=== PATIENT | male | born 1965 | race Caucasian/White ===

== ENCOUNTER 2018-07-13 17:03 | Observation (INO) ==
--- NOTE | 2018-07-13 17:57 | Emergency Department Note ---
Disposition Clinical Impression: Acute hepatitis Hepatitis A Qualifiers: Hepatic coma status: without hepatic coma Qualified Code(s): B15.9 - Hepatitis A without hepatic coma Disposition: Admitted As Inpatient Condition: Good General Adult HPI - General Chief complaint: ED Abdominal Pain Stated complaint: FLu like symptoms Time Seen by Provider: 07/13/18 17:41 Source: patient Mode of arrival: ambulatory Limitations: no limitations Nursing Notes Reviewed: Yes Vital Signs Reviewed: Yes - History of Present Illness HPI Narrative: Patient presents today with no significant past medical history for evaluation of headache and body aches decreased appetite and intermittent abdominal and chest pain. He states his abdominal pain as a cramping chest pain and is not worse with anything in particular describes it as a intermittent and moving in nature. The patient's chest pain as long the right side of his chest he states it feels like a muscle spasm and is worse with muscle movements. His headache is a globalized headache that is worsening of frontal sinus area. He has been sick for approximately 1 week with symptoms getting worse over the past 2 days. He notes Tea colored urine. Decreased overall urine. No burning with urination. Generalized body aches worsen the large muscles including the legs in the upper arms. No decreased ability to walk and no change in mental status. Pain Scale: 8 - Related Data Allergies Allergy/AdvReac Type Severity Reaction Status Date / Time Penicillins Allergy Mild Anaphylaxis Verified 07/13/18 17:28 Review of Systems: CONSTITUTIONAL: No weight loss, fever, chills, weakness or fatigue. HEENT: Eyes: No visual changes. Ears, Nose, Throat: No hearing loss, difficulty talking or unable to swallow. SKIN: No rash or itching. CARDIOVASCULAR: Chest pain without chest pressure or chest discomfort. No palpitations or edema. RESPIRATORY: No shortness of breath, cough or sputum. GASTROINTESTINAL: Intermittent abdominal pain with nausea but no vomiting. Decreased overall bowel movements. GENITOURINARY: Decreased urination with dark urine NEUROLOGICAL: Frontal headache with no dizziness, syncope, paralysis, ataxia, numbness or tingling in the extremities. No change in bowel or bladder control. MUSCULOSKELETAL: Generalized body aches Physical Exam General: Well appearing, nontoxic, no acute distress Head: Normocephalic Atraumatic Eyes: PERRL, EOMI ENT: Airway patent, no stridor Neck: supple, no meningismus Chest: Lungs clear to auscultation bilateral Cardiac: Regular rate and rhythm, no murmurs, rubs or gallops Abdomen: soft, nontender, nondistended; no guarding, rebound, or tenderness to percussion Musculoskeletal: Calves symmetric, nontender, no palpable cord Skin: No rash, normal skin tone Neuro: Alert and Oriented to person, place, and time; No focal deficit Course - Reevaluation(s) Reevaluation #1: Patient's labs concerning for acute hepatitis. Hepatitis panel as well as INR and Tylenol have been ordered. CT scan and ultrasound of both been ordered. Reevaluation #2: CT scan concerning for acute cholecystitis. Gallbladder with Lawson sign negative and right upper quadrant showing small amount of pericholecystic fluid with correlation to possible liver disease versus less likely acute cholecystitis. Common bile duct is within normal limits. - Consultations Consultation #1: Discussed general surgery, Dr. Mayfield, patient will be evaluated tomorrow morning. No need for antibiotics this time. Consultation #2: Discussed with hospitalist. Patient accepted for admission. Vital Signs Temperature 98.3 F 07/13/18 17:26 Pulse Rate 102 07/13/18 17:26 Respiratory Rate 18 07/13/18 17:26 Blood Pressure 122/74 07/13/18 17:26 O2 Sat by Pulse Oximetry 97 07/13/18 17:26 Temperature 98.3 F 07/13/18 19:23 Pulse Rate 91 07/13/18 19:28 Respiratory Rate 15 07/13/18 19:28 Blood Pressure 106/80 07/13/18 19:28 O2 Sat by Pulse Oximetry 99 07/13/18 19:28 Oxygen Delivery Oxygen Delivery Room Air Medical Decision Making - Lab Data Result diagrams: 07/13/18 19:19 07/13/18 19:19 Lab Results 07/13/18 07/13/18 07/13/18 Range/Units 18:10 19:19 19:19 WBC 5.2 (4.3-11.1) K/mcL RBC 6.31 H (4.19-5.50) M/mcL Hgb 18.1 H (12.9-16.9) g/dL Hct 51.8 H (37.5-50.1) % MCV 82.1 L (83.0-100.0) fL MCH 28.7 (28.0-33.3) pg MCHC 34.9 (31.6-35.5) g/dL RDW 12.7 (11.5-14.5) % Plt Count 160 (140-400) K/mcL MPV 11.9 (9.4-12.4) fL Immature Gran % 0.2 (0-4) % Seg Neutrophils % 62.2 % Lymphocytes % 27.2 % Monocytes % 7.9 % Eosinophils % 1.7 % Basophils % 0.8 % Neutrophils # 3.2 (1.6-8.9) K/mcL Lymphocytes # 1.4 (0.6-4.6) K/mcL Monocytes # 0.4 (0.0-1.3) K/mcL Eosinophils # 0.1 (0.0-0.6) K/mcL Basophils # 0.0 (0.0-0.2) K/mcL Reactive Lymphocytes Present A (Not Present) Platelet Estimate Normal (Normal) PT (9.4-12.1) Seconds INR VBG pH (7.32-7.42) pH Units VBG pCO2 (41-51) mmHg VBG pO2 (25-50) mmHg VBG HCO3 (21-27) mEq/L Sodium 129 L (136-145) mEq/L Potassium 3.5 (3.5-5.1) mEq/L Chloride 90 L (98-107) mEq/L Carbon Dioxide 29 (23-29) mEq/L BUN 11 (6-20) mg/dL Creatinine 0.88 (0.70-1.30) mg/dL Est GFR ( Amer) > 60 (> 60) Est GFR (Non-Af Amer) > 60 (> 60) BUN/Creatinine Ratio 13 (6-26) Glucose 339 H (70-105) mg/dL Calculated Osmolality 281 (280-300) Calcium 8.1 L (8.6-10.3) mg/dL Total Bilirubin 7.1 H (0.3-1.0) mg/dL Direct Bilirubin 4.8 H (0.0-0.2) mg/dL Indirect Bilirubin 2.3 H (0.0-1.2) mg/dL AST 2265 H (13-39) Units/L ALT > 500 H (7-52) Units/L Alkaline Phosphatase 177 H (34-104) Units/L Creatine Kinase 70 (30-223) Units/L Troponin I < 0.03 (< 0.04) ng/mL Serum Total Protein 6.3 L (6.4-8.9) g/dL Albumin 3.4 L (3.5-5.7) g/dL Globulin 2.9 (2.4-3.5) g/dL Albumin/Globulin Ratio 1.2 (1.1-2.2) Lipase 22 (11-82) Units/L Beta-Hydroxybutyric Acd (0.02-0.27) mmol/L Urine Color Yellow (Yellow) Urine Clarity Clear (Clear) Urine pH 6.5 (5.0-8.0) pH Units Ur Specific [place] 1.030 H (1.010-1.025) Urine Protein Negative (Neg-Trace) mg/dL Urine Glucose (UA) >=1000 H (Normal) mg/dL Urine Ketones Negative (Negative) mg/dL Urine Blood Negative (Negative) Urine Nitrite Negative (Negative) Urine Bilirubin Small H (Negative) Urine Urobilinogen Normal (Normal) mg/dL Ur Leukocyte Esterase Negative (Negative) Ur Culture Indicated? NO (NO) Acetaminophen < 10 L (10-20) mcg/mL Hepatitis A IgM Ab (Nonreactive) Hep Bs Antigen (Nonreactive) Hep B Core IgM Ab (Nonreactive) Hepatitis C Ab Screen (Nonreactive) 07/13/18 07/13/18 07/13/18 Range/Units 19:19 19:55 21:10 WBC (4.3-11.1) K/mcL RBC (4.19-5.50) M/mcL Hgb (12.9-16.9) g/dL Hct (37.5-50.1) % MCV (83.0-100.0) fL MCH (28.0-33.3) pg MCHC (31.6-35.5) g/dL RDW (11.5-14.5) % Plt Count (140-400) K/mcL MPV (9.4-12.4) fL Immature Gran % (0-4) % Seg Neutrophils % % Lymphocytes % % Monocytes % % Eosinophils % % Basophils % % Neutrophils # (1.6-8.9) K/mcL Lymphocytes # (0.6-4.6) K/mcL Monocytes # (0.0-1.3) K/mcL Eosinophils # (0.0-0.6) K/mcL Basophils # (0.0-0.2) K/mcL Reactive Lymphocytes (Not Present) Platelet Estimate (Normal) PT 17.7 H (9.4-12.1) Seconds INR 1.6 VBG pH 7.44 H (7.32-7.42) pH Units VBG pCO2 45 (41-51) mmHg VBG pO2 29 (25-50) mmHg VBG HCO3 30 H (21-27) mEq/L Sodium (136-145) mEq/L Potassium (3.5-5.1) mEq/L Chloride (98-107) mEq/L Carbon Dioxide (23-29) mEq/L BUN (6-20) mg/dL Creatinine (0.70-1.30) mg/dL Est GFR ( Amer) (> 60) Est GFR (Non-Af Amer) (> 60) BUN/Creatinine Ratio (6-26) Glucose (70-105) mg/dL Calculated Osmolality (280-300) Calcium (8.6-10.3) mg/dL Total Bilirubin (0.3-1.0) mg/dL Direct Bilirubin (0.0-0.2) mg/dL Indirect Bilirubin (0.0-1.2) mg/dL AST (13-39) Units/L ALT (7-52) Units/L Alkaline Phosphatase (34-104) Units/L Creatine Kinase (30-223) Units/L Troponin I (< 0.04) ng/mL Serum Total Protein (6.4-8.9) g/dL Albumin (3.5-5.7) g/dL Globulin (2.4-3.5) g/dL Albumin/Globulin Ratio (1.1-2.2) Lipase (11-82) Units/L Beta-Hydroxybutyric Acd 0.34 H (0.02-0.27) mmol/L Urine Color (Yellow) Urine Clarity (Clear) Urine pH (5.0-8.0) pH Units Ur Specific [place] (1.010-1.025) Urine Protein (Neg-Trace) mg/dL Urine Glucose (UA) (Normal) mg/dL Urine Ketones (Negative) mg/dL Urine Blood (Negative) Urine Nitrite (Negative) Urine Bilirubin (Negative) Urine Urobilinogen (Normal) mg/dL Ur Leukocyte Esterase (Negative) Ur Culture Indicated? (NO) Acetaminophen (10-20) mcg/mL Hepatitis A IgM Ab (Nonreactive) Hep Bs Antigen (Nonreactive) Hep B Core IgM Ab (Nonreactive) Hepatitis C Ab Screen (Nonreactive) 07/13/18 Range/Units 21:10 WBC (4.3-11.1) K/mcL RBC (4.19-5.50) M/mcL Hgb (12.9-16.9) g/dL Hct (37.5-50.1) % MCV (83.0-100.0) fL MCH (28.0-33.3) pg MCHC (31.6-35.5) g/dL RDW (11.5-14.5) % Plt Count (140-400) K/mcL MPV (9.4-12.4) fL Immature Gran % (0-4) % Seg Neutrophils % % Lymphocytes % % Monocytes % % Eosinophils % % Basophils % % Neutrophils # (1.6-8.9) K/mcL Lymphocytes # (0.6-4.6) K/mcL Monocytes # (0.0-1.3) K/mcL Eosinophils # (0.0-0.6) K/mcL Basophils # (0.0-0.2) K/mcL Reactive Lymphocytes (Not Present) Platelet Estimate (Normal) PT (9.4-12.1) Seconds INR VBG pH (7.32-7.42) pH Units VBG pCO2 (41-51) mmHg VBG pO2 (25-50) mmHg VBG HCO3 (21-27) mEq/L Sodium (136-145) mEq/L Potassium (3.5-5.1) mEq/L Chloride (98-107) mEq/L Carbon Dioxide (23-29) mEq/L BUN (6-20) mg/dL Creatinine (0.70-1.30) mg/dL Est GFR ( Amer) (> 60) Est GFR (Non-Af Amer) (> 60) BUN/Creatinine Ratio (6-26) Glucose (70-105) mg/dL Calculated Osmolality (280-300) Calcium (8.6-10.3) mg/dL Total Bilirubin (0.3-1.0) mg/dL Direct Bilirubin (0.0-0.2) mg/dL Indirect Bilirubin (0.0-1.2) mg/dL AST (13-39) Units/L ALT (7-52) Units/L Alkaline Phosphatase (34-104) Units/L Creatine Kinase (30-223) Units/L Troponin I (< 0.04) ng/mL Serum Total Protein (6.4-8.9) g/dL Albumin (3.5-5.7) g/dL Globulin (2.4-3.5) g/dL Albumin/Globulin Ratio (1.1-2.2) Lipase (11-82) Units/L Beta-Hydroxybutyric Acd (0.02-0.27) mmol/L Urine Color (Yellow) Urine Clarity (Clear) Urine pH (5.0-8.0) pH Units Ur Specific [place] (1.010-1.025) Urine Protein (Neg-Trace) mg/dL Urine Glucose (UA) (Normal) mg/dL Urine Ketones (Negative) mg/dL Urine Blood (Negative) Urine Nitrite (Negative) Urine Bilirubin (Negative) Urine Urobilinogen (Normal) mg/dL Ur Leukocyte Esterase (Negative) Ur Culture Indicated? (NO) Acetaminophen (10-20) mcg/mL Hepatitis A IgM Ab Reactive H (Nonreactive) Hep Bs Antigen Nonreactive (Nonreactive) Hep B Core IgM Ab Nonreactive (Nonreactive) Hepatitis C Ab Screen Nonreactive (Nonreactive)
[2018-07-13 18:27] LABS: Bilirubin,Urine Small (Negative); Blood,Urine Negative (Negative); Clarity,Urine Clear (Clear); Color,Urine Yellow (Yellow); Glucose,Urine (UA) >=1000 mg/dL (Normal); Ketones,Urine Negative (Negative); Leukocyte Esterase,Urine Negative (Negative); Nitrite,Urine Negative (Negative); PH,Urine 6.5 pH Units (5.0-8.0); Protein,Urine Negative (Neg-Trace); Urobilinogen,Urine Normal (Normal)
[2018-07-13] MEDS ORDERED: 0.9 % Sodium Chloride 1,000 ML IVC ONE ×2 (19:05→23:11)
[2018-07-13 19:58] LABS: VBG HCO3 30 mEq/L (21-27); VBG PCO2 45 mmHg (41-51); VBG PH 7.44 pH Units (7.32-7.42); VBG PO2 29 mmHg (25-50)
[2018-07-13 20:07] LABS: Basophils % 0.8 %; Eosinophils # 0.1 K/mcL (0.0-0.6); Eosinophils % 1.7 %; Hematocrit 51.8 % (37.5-50.1); Hemoglobin 18.1 g/dL (12.9-16.9); Immature Granulocytes % 0.2 % (0-4); Lymphocytes # 1.4 K/mcL (0.6-4.6); Lymphocytes % 27.2 %; Mean Corpuscular HGB Conc 34.9 g/dL (31.6-35.5); Mean Corpuscular Hemoglobin 28.7 pg (28.0-33.3); Mean Corpuscular Volume 82.1 fL (83.0-100.0); Mean Platelet Volume 11.9 fL (9.4-12.4); Monocytes # 0.4 K/mcL (0.0-1.3); Monocytes % 7.9 %; Neutrophils # 3.2 K/mcL (1.6-8.9); Platelet Count 160 K/mcL (140-400); Red Blood Count 6.31 M/mcL (4.19-5.50); Red Cell Distribution Width 12.7 % (11.5-14.5); Segmented Neutrophils % 62.2 %
[2018-07-13 20:17] LABS: Troponin I < 0.03 ng/mL (< 0.04)
[2018-07-13 20:31] LABS: Alanine Aminotransferase > 500 Units/L (7-52); Albumin 3.4 g/dL (3.5-5.7); Albumin/Globulin Ratio 1.2 (1.1-2.2); Alkaline Phosphatase 177 Units/L (34-104); Aspartate Amino Transferase 2265 Units/L (13-39); BUN/Creatinine Ratio 13 (6-26); Bilirubin,Direct 4.8 mg/dL (0.0-0.2); Bilirubin,Indirect 2.3 mg/dL (0.0-1.2); Bilirubin,Total 7.1 mg/dL (0.3-1.0); Blood Urea Nitrogen 11 mg/dL (6-20); Calcium 8.1 mg/dL (8.6-10.3); Carbon Dioxide 29 mEq/L (23-29); Chloride 90 mEq/L (98-107); Creatine Kinase 70 Units/L (30-223); Globulin 2.9 g/dL (2.4-3.5); Glucose 339 mg/dL (70-105); Lipase 22 Units/L (11-82); Osmolality,Calculated 281 (280-300); Potassium 3.5 mEq/L (3.5-5.1); Sodium 129 mEq/L (136-145); Total Protein 6.3 g/dL (6.4-8.9); eGFR For Non-African Americans > 60 (> 60)
[2018-07-13 20:32] LABS: Platelet Estimate Normal (Normal); Reactive Lymphocytes Present (Not Present)
[2018-07-13] MEDS ORDERED: Isovue-370 500 ML INFUS..BTL IV ONE (20:56)
[2018-07-13 21:28] LABS: Acetaminophen < 10 mcg/mL (10-20)
[2018-07-13 21:37] LABS: INR 1.6; Prothrombin Time 17.7 Seconds (9.4-12.1)
[2018-07-13 22:07] LABS: Hepatitis B Core IgM Nonreactive (Nonreactive); Hepatitis B Surface Antigen Nonreactive (Nonreactive); Hepatitis C Virus Antibody Nonreactive (Nonreactive)
[2018-07-13 22:45] LABS: Hepatitis A Antibody IgM Reactive (Nonreactive)
[2018-07-13] MEDS ORDERED: Ondansetron 4 MG/2 ML VIAL IVP ONE (23:11)
[2018-07-13] MEDS ORDERED: *HR* FentaNYL (PF) 100 MCG/2 ML VIAL IVP ONE (23:22)
[2018-07-13] MEDS ORDERED: Ondansetron 4 MG/2 ML VIAL IVP STA (23:35)
[2018-07-13] MEDS ORDERED: 0.9 % Sodium Chloride 1,000 ML IVC SCH (23:45)
[2018-07-13] MEDS ORDERED: Naloxone 0.4 MG/ML INJ IVP PRN (23:58)
--- NOTE | 2018-07-14 00:01 | Internal Med History&Physical ---
Date of Encounter: 07/14/18 Time of Encounter: 00:01 Internal Medicine - H&P: HPI Chief complaint: Flu like Sx History of present illness: Mr. Puente is a 53 year old male with no significant past medical history who presents with a 1 week history of flu-like symptoms. Symptoms started last Saturday and have gotten progressively worse over the past 2 days. He states his abdominal pain is generalized and described as cramping; no association with food but he has not eaten much over the past week. He did have 2 episodes of nausea and vomiting nonbloody nonbilious emesis. Denies any diarrhea. He reports chest pain located across his chest which she states feels like a muscle spasm and is worse with muscle movements. He notes dark colored urine. No burning with urination. Generalized body aches worsen the large muscles including the legs in the upper arms. With regard to sick contacts, patient has been around his grandchildren who have been sick recently. In the ED patient was hemodynamically stable, afebrile with mild tachycardia of 102. His laborator y workup was notable for abnormal LFTs and positive hepatitis A serology. CT scan of the abdomen noted possible acute cholecystitis. A right upper quadrant ultrasound was subsequently performed demonstrating gallbladder wall thickening with a small amount of pericholecystic fluid. This was discussed with Dr. Mejia with surgery who will see the patient in the morning but to hold antibiotics for now. Past Med Surg Social Fam HX - Past Medical History Medical history: diabetes Additional medical history: Ulcers Psychiatric history: no psych history - Social History Smoking Status: Former smoker Alcohol use: none Drug use: none Internal Medicine - H&P: Meds No Known Home Drugs 07/13/18 [History] Allergy/AdvReac Type Severity Reaction Status Date / Time Penicillins Allergy Mild Anaphylaxis Verified 07/13/18 17:28 All Systems PM: A 10-system review of systems was performed and is negative for pertinent findings except as documented above in the HPI. - Constitutional Constitutional: no chills, no fever(s), no night sweats - EENT Eyes: no change in vision, no discharge, no pain, no photophobia Ears: no ear discharge, no ear pain, no tinnitus Nose, mouth and throat: no dysphagia, no nasal discharge, no neck pain, no sore throat - Cardiovascular Cardiovascular ROS IM: no chest pain, no diaphoresis, no dyspnea, no lightheadedness, no palpitations, no syncope - Respiratory Respiratory: no cough, no dyspnea, no wheezing, no excessive phlegm production - Gastrointestinal Gastrointestinal: no abdominal pain, no diarrhea, no hematemesis, no hematochezia, no melena, no nausea, no vomiting - Musculoskeletal Musculoskeletal ROS IM: no numbness, no tingling - Integumentary Integumentary IM: no rash, no unusual bruising - Neurological Neurological ROS: no confusion, no convulsions, no focal weakness, no numbness, no tingling, no tremor(s) - Hematologic/Lymphatic Hematologic/Lymphatic: no easy bruising - Constitutional Vitals: Temp Pulse Resp BP Pulse Ox 98.3 F 88 16 117/66 94 07/13/18 19:23 07/13/18 23:37 07/13/18 23:37 07/13/18 23:37 07/13/18 23:37 Exam: General: Alert and oriented Skin:Normal color, no rash, no lesions. HEENT:EOM, pupils equal, round and reactive. Cardiovascular:Normal S1 & S2, no rubs, murmurs or gallops. No JVD. Pulse regular. Lungs:Normal breath sounds, no wheezes or crackles. Abdomen:Soft, diffusely tender. No rebound or guarding. Negative Lawson sign. Extremities:No deformity, no edema or tenderness, no joint swelling or clubbing. Neurological:Normal cognition and motor skills. Pulses:Carotid and radial pulses normal +2. Rest of the physical exam is non contributory Internal Med - H&P Results - Labs CBC & Chem 7: 07/14/18 04:36 07/13/18 19:19 Labs: Short CBC 07/13/18 Range/Units 19:19 WBC 5.2 (4.3-11.1) K/mcL Hgb 18.1 H (12.9-16.9) g/dL Hct 51.8 H (37.5-50.1) % Plt Count 160 (140-400) K/mcL Neutrophils # 3.2 (1.6-8.9) K/mcL BMP 07/13/18 19:19 Sodium 129 L Potassium 3.5 Chloride 90 L Carbon Dioxide 29 BUN 11 Creatinine 0.88 Glucose 339 H Calcium 8.1 L Cardiac Enzymes 07/13/18 Range/Units 19:19 Troponin I < 0.03 (< 0.04) ng/mL Liver Function 07/13/18 Range/Units 19:19 Total Bilirubin 7.1 H (0.3-1.0) mg/dL Direct Bilirubin 4.8 H (0.0-0.2) mg/dL AST 2265 H (13-39) Units/L ALT > 500 H (7-52) Units/L Alkaline Phosphatase 177 H (34-104) Units/L Albumin 3.4 L (3.5-5.7) g/dL Urine 07/13/18 Range/Units 18:10 Urine Color Yellow (Yellow) Urine Clarity Clear (Clear) Urine pH 6.5 (5.0-8.0) pH Units Ur Specific [place] 1.030 H (1.010-1.025) Urine Protein Negative (Neg-Trace) mg/dL Urine Glucose (UA) >=1000 H (Normal) mg/dL - ABG Interpretation ABG results: 07/13/18 19:55 VBG pH 7.44 H VBG pCO2 45 VBG pO2 29 VBG HCO3 30 H - Impressions ITS Impressions Chest X-Ray 07/13/18 17:52 IMPRESSION: No acute process. D/ / Ondina Zabala MD / Ondina Zabala MD Interpreting Provider: Ondina Zabala MD Abdomen/Pelvis CT 07/13/18 20:56 IMPRESSION: Findings most likely represent acute cholecystitis. D/ / Rao Girmaldo MD / Rao Grimaldo MD Interpreting Provider: Rao Grimaldo MD Gallbladder Ultrasound 07/13/18 20:56 IMPRESSION: Gallbladder wall thickening with a small amount of pericholecystic fluid. Findings may be related to hepatic dysfunction versus acute cholecystitis. No gallstones are seen. Hepatic steatosis. D/ / 07/13/2018 22:44:40 Haroldo Valencia MD / tere joaquin Interpreting Provider: Haroldo Valencia MD - Assessment and plan (1) Flu-like symptoms Current Visit: Yes Status: Acute Assessment and plan: Headache, generalized fatigue and body aches in the setting of positive hepatitis A serology. Supportive care. (2) Acute hepatitis Current Visit: Yes Status: Acute Assessment and plan: Positive serology for acute hepatitis A consistent with patient's clinical presentation and abnormal LFTs. Continue supportive care with fluids. (3) Abnormal LFTs Current Visit: Yes Status: Acute Assessment and plan: See above (4) Abdominal pain Current Visit: Yes Status: Acute Assessment and plan: Diffuse colicky abdominal pain in the setting of acute hepatitis A infection. CT scan demonstrated some suspicion for acute cholecystitis. Subsequent ultrasound of the gallbladder shows gallbladder wall thickening with some pericholecystic fluid and negative Lawson sign. Low suspicion for acute cholecystitis and findings likely secondary to acute hepatitis. Dr. Mayfield surgery has been consult at and will evaluate the patient in the morning with no recommendations of antibiotics at this time. Qualifiers: Abdominal location: generalized Qualified Code(s): R10.84 - Generalized abdominal pain (5) DVT prophylaxis Current Visit: Yes Status: Acute Assessment and plan: Subcutaneous heparin - Time Spent With Patient Total time spent is greater than 50% in coordination of care (as documented) at patient's floor/unit and/or counseling patient:
[2018-07-14] MEDS: *HR* Heparin 5,000 UNIT/ML VIAL SQ SCH ×4 (01:44→21:55)
[2018-07-14 05:38] LABS: Basophils % 0.8 %; Eosinophils # 0.1 K/mcL (0.0-0.6); Eosinophils % 1.9 %; Hematocrit 44.2 % (37.5-50.1); Hemoglobin 15.5 g/dL (12.9-16.9); Immature Granulocytes % 0.6 % (0-4); Lymphocytes # 1.3 K/mcL (0.6-4.6); Lymphocytes % 27.3 %; Mean Corpuscular HGB Conc 35.1 g/dL (31.6-35.5); Mean Corpuscular Hemoglobin 28.9 pg (28.0-33.3); Mean Corpuscular Volume 82.5 fL (83.0-100.0); Mean Platelet Volume 11.4 fL (9.4-12.4); Monocytes # 0.5 K/mcL (0.0-1.3); Monocytes % 9.6 %; Neutrophils # 2.9 K/mcL (1.6-8.9); Platelet Count 149 K/mcL (140-400); Red Blood Count 5.36 M/mcL (4.19-5.50); Red Cell Distribution Width 12.8 % (11.5-14.5); Segmented Neutrophils % 59.8 %
[2018-07-14 05:44] LABS: INR 1.5; Prothrombin Time 16.6 Seconds (9.4-12.1)
[2018-07-14 06:10] LABS: Alanine Aminotransferase > 500 Units/L (7-52); Albumin 2.7 g/dL (3.5-5.7); Albumin/Globulin Ratio 1.1 (1.1-2.2); Alkaline Phosphatase 143 Units/L (34-104); Aspartate Amino Transferase 1773 Units/L (13-39); BUN/Creatinine Ratio 13 (6-26); Bilirubin,Total 6.4 mg/dL (0.3-1.0); Blood Urea Nitrogen 8 mg/dL (6-20); Carbon Dioxide 27 mEq/L (23-29); Chloride 100 mEq/L (98-107); Globulin 2.4 g/dL (2.4-3.5); Glucose 198 mg/dL (70-105); Osmolality,Calculated 282 (280-300); Potassium 3.4 mEq/L (3.5-5.1); Sodium 134 mEq/L (136-145); Total Protein 5.1 g/dL (6.4-8.9); eGFR For Non-African Americans > 60 (> 60)
--- NOTE | 2018-07-14 11:10 | General Surgery Consult Note ---
<Jad Blackman S - Last Filed: 07/14/18 11:34> Date of Encounter: 07/14/18 Time of Encounter: 10:30 Assessment and Plan (1) Acute cholecystitis Status: Acute Patient with evidence of cholecystitis on CT and US New diagnosis of hepatitis A on this admission Elevated transaminases AST 2265 > 1773 today ALT >500 today Alk phos 177 > 143 WBC 4.8 today Will hold off on cholecystectomy at this time due to liver inflammation Surgery will sign off, thank you for the consult Will follow-up as outpatient after liver inflammation decreases - appointment made for 08/19/18 at 2:[address] Mayfield (2) Hepatitis A Status: Acute New diagnosis of Hep A on this admission Will wait for liver inflammation to decrease and follow-up as outpatient for suspected cholecystitis Qualifiers: Hepatic coma status: without hepatic coma Qualified Code(s): B15.9 - Hepatitis A without hepatic coma History of Present Illness Consult date: 07/14/18 Reason for consult: other (acute cholecystitis) Requesting physician: Jose Carlos Ayala History of present illness: 53 year old male with PMHx of gastric ulcers presents to [place] on 07/13 with chief complaint of abdominal pain and flu-like symptoms. Surgery was consulted for suspected acute cholecystitis. In ED, patient's labs showed WBC 5.2, T.bili 7.1, AST 2265, ALT >500, Alk phos 177. CT showed gallbladder wall thickening and fat stranding, no cholelithiasis or ductal dilation. US showed gallbladder wall thickening with small amount of pericholecystic fluid. He was positive for hepatitis A in ED. Patient seen and examined today. He states his symptoms started on 07/08 with generalized malaise, upper quadrant abdominal pain, nausea, non-bilious and non- bloody vomiting, and subjective fevers and chills. Patient states the pain is across his upper abdomen, slightly worse in RUQ. Patient describes the pain as sharp and worse with movement, no change with eating. For the past couple days he experienced the pain 4-5 times per hour in 30 second bursts. Patient states he last ate yesterday morning. He states he was treated for gastric ulcers approximately 20 years ago with complete resolution. He denies surgical any history. He has never had a colonoscopy or EGD. Patient is a former smoker, quit 15 year ago. He denies drug and alcohol use. Past Med Surg Social Fam HX - Past Medical History Medical history: diabetes Additional medical history: Ulcers Psychiatric history: no psych history - Social History Smoking Status: Former smoker Smokeless Tobacco Status: No Alcohol use: none Drug use: none Medications and Allergies RX: Ciprofloxacin HCL [Ciloxan OPTH Soln] 2 drop LEFT EYE Q4HR 4 Days #1 bottle 07/16/18 [Rx] Allergy/AdvReac Type Severity Reaction Status Date / Time Penicillins Allergy Mild Anaphylaxis Verified 07/14/18 07:52 Review of Systems All systems PM: The remainder of the systems were reviewed and are negative General Surgery Exam Initial Vital Signs Temp Pulse Resp BP Pulse Ox 98.3 F 102 18 122/74 97 07/13/18 17:26 07/13/18 17:26 07/13/18 17:26 07/13/18 17:26 07/13/18 17:26 - General physical appearance well developed, no distress - Respiratory normal expansion, normal respiratory effort - Cardiovascular Cardiovascular exam: Present: RRR - Abdomen Abdomen general surgery: Present: bowel sounds present, soft, tender Abdominal Tenderness: Present: epigastic, RUQ Hernia: Present: none - Integumentary Integumentary general surgery: Present: warm and dry, no abnormal pigmentation - Psychiatric Psychiatric general surgery: Present: A&Ox3, appropriate Exam Initial Vital Signs Temp Pulse Resp BP Pulse Ox 98.3 F 102 18 122/74 97 07/13/18 17:26 07/13/18 17:26 07/13/18 17:26 07/13/18 17:26 07/13/18 17:26 Results - Labs 07/14/18 04:36 07/14/18 04:36 Abnormal lab results MCV 82.5 fL (83.0-100.0) L 07/14/18 04:36 Reactive Lymphocytes Present (Not Present) A 07/13/18 19:19 PT 16.6 Seconds (9.4-12.1) H 07/14/18 04:36 VBG pH 7.44 pH Units (7.32-7.42) H 07/13/18 19:55 VBG HCO3 30 mEq/L (21-27) H 07/13/18 19:55 Sodium 134 mEq/L (136-145) L 07/14/18 04:36 Potassium 3.4 mEq/L (3.5-5.1) L 07/14/18 04:36 Creatinine 0.63 mg/dL (0.70-1.30) L 07/14/18 04:36 Glucose 198 mg/dL (70-105) H 07/14/18 04:36 Calcium 7.0 mg/dL (8.6-10.3) L 07/14/18 04:36 Total Bilirubin 6.4 mg/dL (0.3-1.0) H 07/14/18 04:36 Direct Bilirubin 4.8 mg/dL (0.0-0.2) H 07/13/18 19:19 Indirect Bilirubin 2.3 mg/dL (0.0-1.2) H 07/13/18 19:19 AST 1773 Units/L (13-39) H 07/14/18 04:36 ALT > 500 Units/L (7-52) H 07/14/18 04:36 Alkaline Phosphatase 143 Units/L (34-104) H 07/14/18 04:36 Serum Total Protein 5.1 g/dL (6.4-8.9) L 07/14/18 04:36 Albumin 2.7 g/dL (3.5-5.7) L 07/14/18 04:36 Beta-Hydroxybutyric Acd 0.34 mmol/L (0.02-0.27) H 07/13/18 19:19 Ur Specific [place] 1.030 (1.010-1.025) H 07/13/18 18:10 Urine Glucose (UA) >=1000 mg/dL (Normal) H 07/13/18 18:10 Urine Bilirubin Small (Negative) H 07/13/18 18:10 Acetaminophen < 10 mcg/mL (10-20) L 07/13/18 19:19 Hepatitis A IgM Ab Reactive (Nonreactive) H 07/13/18 21:10 Diabetes panel 07/13/18 07/14/18 Range/Units 19:19 04:36 Sodium 129 L 134 L (136-145) mEq/L Potassium 3.5 3.4 L (3.5-5.1) mEq/L Chloride 90 L 100 (98-107) mEq/L Carbon Dioxide 29 27 (23-29) mEq/L BUN 11 8 (6-20) mg/dL Creatinine 0.88 0.63 L (0.70-1.30) mg/dL Glucose 339 H 198 H (70-105) mg/dL Calcium 8.1 L 7.0 L (8.6-10.3) mg/dL AST 2265 H 1773 H (13-39) Units/L ALT > 500 H > 500 H (7-52) Units/L Alkaline Phosphatase 177 H 143 H (34-104) Units/L Albumin 3.4 L 2.7 L (3.5-5.7) g/dL Calcium panel 07/13/18 07/14/18 Range/Units 19:19 04:36 Calcium 8.1 L 7.0 L (8.6-10.3) mg/dL Albumin 3.4 L 2.7 L (3.5-5.7) g/dL Pituitary panel 07/13/18 07/14/18 Range/Units 19:19 04:36 Sodium 129 L 134 L (136-145) mEq/L Potassium 3.5 3.4 L (3.5-5.1) mEq/L Chloride 90 L 100 (98-107) mEq/L Carbon Dioxide 29 27 (23-29) mEq/L BUN 11 8 (6-20) mg/dL Creatinine 0.88 0.63 L (0.70-1.30) mg/dL Glucose 339 H 198 H (70-105) mg/dL Calcium 8.1 L 7.0 L (8.6-10.3) mg/dL Adrenal panel 07/13/18 07/14/18 Range/Units 19:19 04:36 Sodium 129 L 134 L (136-145) mEq/L Potassium 3.5 3.4 L (3.5-5.1) mEq/L Chloride 90 L 100 (98-107) mEq/L Carbon Dioxide 29 27 (23-29) mEq/L BUN 11 8 (6-20) mg/dL Creatinine 0.88 0.63 L (0.70-1.30) mg/dL Glucose 339 H 198 H (70-105) mg/dL Calcium 8.1 L 7.0 L (8.6-10.3) mg/dL Total Bilirubin 7.1 H 6.4 H (0.3-1.0) mg/dL AST 2265 H 1773 H (13-39) Units/L ALT > 500 H > 500 H (7-52) Units/L Alkaline Phosphatase 177 H 143 H (34-104) Units/L Albumin 3.4 L 2.7 L (3.5-5.7) g/dL All other labs normal. Consult Discharge Plan - Plan Instructions: Ciprofloxacin (Into the eye) Referrals: Yogesh Mayfield DO [Partnered Physician] - 08/19/18 2:50 pm (Please follow up as schedule..) Zuleyka Da Silva DO [Partnered Physician] - 07/23/18 9:00 am (Please follow u[p as scheduled. And you will be receiving a new patient packet in the mail to be completed prior to your appointment. Thank you!) Cassandra Da Silva [Advanced Practice Nurse] - 07/29/18 2:30 pm (Please follow up as schedule...) Prescriptions: RX: Ciprofloxacin HCL [Ciloxan OPTH Soln] 2 drop LEFT EYE Q4HR 4 Days #1 bottle <Yogesh Mayfield - Last Filed: 07/18/18 13:05> Date of Encounter: 07/18/18 Assessment and Plan (1) Acute cholecystitis Status: Acute (2) Abdominal pain Status: Acute Currently the patient's abdominal pain is not significant. There is no indication for cholecystectomy. I will follow as needed. Qualifiers: Abdominal location: generalized Qualified Code(s): R10.84 - Generalized abdominal pain Review of Systems All systems PM: The remainder of the systems were reviewed and are negative General Surgery Exam Initial Vital Signs Temp Pulse Resp BP Pulse Ox 98.3 F 102 18 122/74 97 07/13/18 17:26 07/13/18 17:26 07/13/18 17:26 07/13/18 17:26 07/13/18 17:26 Exam Initial Vital Signs Temp Pulse Resp BP Pulse Ox 98.3 F 102 18 122/74 97 07/13/18 17:26 07/13/18 17:26 07/13/18 17:26 07/13/18 17:26 07/13/18 17:26 Results - Labs 07/16/18 06:15 07/15/18 05:49 Abnormal lab results RBC 5.78 M/mcL (4.19-5.50) H 07/16/18 06:15 MCV 82.2 fL (83.0-100.0) L 07/16/18 06:15 Reactive Lymphocytes Present (Not Present) A 07/15/18 05:49 PT 14.5 Seconds (9.4-12.1) H 07/16/18 06:15 VBG pH 7.44 pH Units (7.32-7.42) H 07/13/18 19:55 VBG HCO3 30 mEq/L (21-27) H 07/13/18 19:55 Creatinine 0.63 mg/dL (0.70-1.30) L 07/15/18 05:49 Glucose 199 mg/dL (70-105) H 07/15/18 05:49 POC Glucose 160 mg/dL (70-99) H 07/14/18 05:04 Calcium 7.4 mg/dL (8.6-10.3) L 07/15/18 05:49 Total Bilirubin 8.0 mg/dL (0.3-1.0) H 07/16/18 06:15 Direct Bilirubin 5.2 mg/dL (0.0-0.2) H 07/16/18 06:15 Indirect Bilirubin 2.8 mg/dL (0.0-1.2) H 07/16/18 06:15 AST 1410 Units/L (13-39) H 07/16/18 06:15 ALT > 500 Units/L (7-52) H 07/16/18 06:15 Alkaline Phosphatase 158 Units/L (34-104) H 07/16/18 06:15 Serum Total Protein 5.1 g/dL (6.4-8.9) L 07/16/18 06:15 Albumin 2.7 g/dL (3.5-5.7) L 07/16/18 06:15 Beta-Hydroxybutyric Acd 0.34 mmol/L (0.02-0.27) H 07/13/18 19:19 Ur Specific [place] 1.030 (1.010-1.025) H 07/13/18 18:10 Urine Glucose (UA) >=1000 mg/dL (Normal) H 07/13/18 18:10 Urine Bilirubin Small (Negative) H 07/13/18 18:10 Acetaminophen < 10 mcg/mL (10-20) L 11/11/18 19:19 Hepatitis A IgM Ab Reactive (Nonreactive) H 07/13/18 21:10 All other labs normal.
[2018-07-14] MEDS: Ondansetron 4 MG/2 ML VIAL IVP PRN ×2 (11:34→21:57)
--- NOTE | 2018-07-14 12:34 | Gastroenterology Consult Note ---
<Cassandra Da Silva - Last Filed: 07/14/18 12:30> Date of Encounter: 07/14/18 Time of Encounter: 12:20 - Assessment and plan (1) Hepatitis A Current Visit: Yes Status: Acute Assessment and plan: Pt presents with acute Hepatitis A. Lfts are slightly improved this morning. He is being followed by surgery for possible cholecystitis. US findings may be edema due to acute hepatitis. Monitor lfts, supportive care, advance diet as tolerated, advised precautions to take to prevent spread of illness. Will follow in the office in 2 weeks. Qualifiers: Hepatic coma status: without hepatic coma Qualified Code(s): B15.9 - Hepatitis A without hepatic coma (2) Abnormal LFTs Current Visit: Yes Status: Acute - Time Spent With Patient Total time spent is greater than 50% in coordination of care (as documented) at patient's floor/unit and/or counseling patient: GI History of Present Illness - Data of Consult Patient: new to practice Consult date: 07/14/18 Requesting Physician: Jose Carlos Ayala MD - Consult Narrative Reason for consult: hepatitis a History of present illness: Mr. Puente is a 53 year old male with no significant past medical history who presents with a 1 week history of flu-like symptoms. Symptoms started last Saturday and have gotten progressively worse over the past 2 days. He states his abdominal pain is generalized and described as cramping; no association with shivani d but he has not eaten much over the past week. He did have 2 episodes of nausea and vomiting nonbloody nonbilious emesis. Denies any diarrhea. He reports chest pain located across his chest which she states feels like a muscle spasm and is worse with muscle movements. He notes dark colored urine. No burning with urination. Generalized body aches worsen the large muscles including the legs in the upper arms. 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 He denies any ETOH or IVDU. He states he ate at [employer] approximately 2 weeks ago. In the ED patient was hemodynamically stable, afebrile with mild tachycardia of 102. His laboratory workup was notable for abnormal LFTs and positive hepatitis A serology. CT scan of the abdomen noted possible acute cholecystitis. A right upper quadrant ultrasound was subsequently performed demonstrating gallbladder wall thickening with a small amount of pericholecystic fluid. Dr Mayfield saw the patient and decided against surgery until liver inflammation improves, he has follow up visit with Dr Mayfiedl 08/19. Past Med Surg Social Fam HX - Past Medical History Medical history: diabetes Additional medical history: Ulcers Psychiatric history: no psych history - Social History Smoking Status: Former smoker Smokeless Tobacco Status: No Alcohol use: none Drug use: none Review of Systems: GI: as per [facility] GENERAL: fever and chills EYES: yellow discoloration ENT: denies pain with swallowing or difficulty swallowing CARDIO: see hpi RESP: No Shortness of breath with exertion : dark urine NEURO: denies any weakness HEME: Denies any bruising MS: generalized body aches. DERM: denies rash or itching PSYCH: Denies history of anxiety or depression - Constitutional Vitals: Temp Pulse Resp BP Pulse Ox 98.4 F 86 16 113/72 98 07/14/18 12:01 07/14/18 12:01 07/14/18 12:01 07/14/18 12:01 07/14/18 12:01 Exam: CONSTITUTIONAL:alert, no acute distress.HEAD:normocephalic.EYES:jaundice.NECK:no obvious swelling.HEART:regular rate and rhythm, no murmurs.LUNGS:bilateral good air entry.ABDOMEN:non distended, soft, tender, no masses palpable, no organomegaly.RECTAL EXAM:Deferred.EXTREMITIES:no clubbing, cyanosis or edema.SKIN:no stigmata of chronic liver disease.NEUROLOGIC:no obvious focal defect. Results - Labs CBC & Chem 7: 07/14/18 04:36 07/14/18 04:36 Labs: Last Result Calcium 7.0 mg/dL (8.6-10.3) L 07/14/18 04:36 Troponin I < 0.03 ng/mL (< 0.04) 07/13/18 19:19 Entire Visit Hgb 15.5 g/dL (12.9-16.9) D 07/14/18 04:36 Hct 44.2 % (37.5-50.1) 07/14/18 04:36 PT 16.6 Seconds (9.4-12.1) H 07/14/18 04:36 Total Bilirubin 6.4 mg/dL (0.3-1.0) H 07/14/18 04:36 AST 1773 Units/L (13-39) H 07/14/18 04:36 ALT > 500 Units/L (7-52) H 07/14/18 04:36 Lipase 22 Units/L (11-82) 07/13/18 19:19 Acetaminophen < 10 mcg/mL (10-20) L 07/13/18 19:19 - ABG ABG results: PT/INR, D-dimer PT 16.6 Seconds (9.4-12.1) H 07/14/18 04:36 - Impressions Impressions Chest X-Ray 07/13/18 17:52 IMPRESSION: No acute process. D/ / Ondina Zabala MD / Ondina Zabala MD Interpreting Provider: Ondina Zabala MD Abdomen/Pelvis CT 07/13/18 20:56 IMPRESSION: Findings most likely represent acute cholecystitis. D/ / Rao Grimaldo MD / Rao Grimaldo MD Interpreting Provider: Rao Grimaldo MD Gallbladder Ultrasound 07/13/18 20:56 IMPRESSION: Gallbladder wall thickening with a small amount of pericholecystic fluid. Findings may be related to hepatic dysfunction versus acute cholecystitis. No gallstones are seen. Hepatic steatosis. D/ / 07/13/2018 22:44:40 Haroldo Valencia MD / vanessa Interpreting Provider: Haroldo Valencia MD Consult Discharge Plan - Plan Referrals: Yogesh Mayfield DO [Partnered Physician] - 08/19/18 2:50 pm NONE,PCP [Primary Care Provider] - <Anabel Velázquez - Last Filed: 07/14/18 21:08> Date of Encounter: 07/14/18 Time of Encounter: 18:00 - Time Spent With Patient Total time spent is greater than 50% in coordination of care (as documented) at patient's floor/unit and/or counseling patient: GI History of Present Illness - Data of Consult Requesting Physician: Jose Carlos Ayala MD - Consult Narrative History of present illness: Mr. Puente is a 53 year old male - Constitutional Vitals: Temp Pulse Resp BP Pulse Ox 98.9 F 85 17 122/77 96 07/14/18 19:13 07/14/18 19:13 07/14/18 19:13 07/14/18 19:13 07/14/18 19:13 Results - Labs CBC & Chem 7: 07/14/18 04:36 07/14/18 04:36 Labs: Last Result Calcium 7.0 mg/dL (8.6-10.3) L 07/14/18 04:36 Troponin I < 0.03 ng/mL (< 0.04) 07/13/18 19:19 Entire Visit Hgb 15.5 g/dL (12.9-16.9) D 07/14/18 04:36 Hct 44.2 % (37.5-50.1) 07/14/18 04:36 PT 16.6 Seconds (9.4-12.1) H 07/14/18 04:36 Total Bilirubin 6.4 mg/dL (0.3-1.0) H 07/14/18 04:36 AST 1773 Units/L (13-39) H 07/14/18 04:36 ALT > 500 Units/L (7-52) H 07/14/18 04:36 Lipase 22 Units/L (11-82) 07/13/18 19:19 Acetaminophen < 10 mcg/mL (10-20) L 07/13/18 19:19 - ABG ABG results: PT/INR, D-dimer PT 16.6 Seconds (9.4-12.1) H 07/14/18 04:36 - Impressions Impressions Abdomen/Pelvis CT 07/13/18 20:56 IMPRESSION: Findings most likely represent acute cholecystitis. D/ / Rao Grimaldo MD / Rao Grimaldo MD Interpreting Provider: Rao Grimaldo MD Gallbladder Ultrasound 07/13/18 20:56 IMPRESSION: Gallbladder wall thickening with a small amount of pericholecystic fluid. Findings may be related to hepatic dysfunction versus acute cholecystitis. No gallstones are seen. Hepatic steatosis. D/ / 07/13/2018 22:44:40 Haroldo Valencia MD / vanessa Interpreting Provider: Haroldo Valencia MD - Attending Attestation I examined this patient and my medical decision-making was reviewed with the Resident Physician. I agree with the documented findings, disposition and treatment plan as described except to the extent set forth below. Pt seen . Pt with complaints of nause and upper abd pain. O/E: Tander upper abd. A: pt with acute Hep A with acute Liver Failure ( Elvated LFTS and INR 1.6) Rec: INR better, lFTs improving. Supportive care
--- NOTE | 2018-07-14 12:54 | Event Note ---
Date of Encounter: 07/14/18 Time of Encounter: 09:00 Pt was seen and examined. Still complaint of right upper quadrant pain, nausea, poor appetite. No fever. On exam, left eye redness/injection noticed, denies vision change or eye pain. Lungs and heart exam unremarkable. Abdominal soft, diffuse tenderness especially RUQ, no rebound or guarding. Plan: 1. Acute hepatitis A: Continue supportive treatment and closely monitor liver function, PT/INR. GI consult appreciated. 2. Clolecystitis: Surgical consult appreciated. Cannot rule out acute cholecystitis by imaging but pt is more like acute hepatitis A. Currently patient has no signs of infection (no white count, no fever), will hold any antibiotic treatment and cont closely monitor patient. Patient will follow-up with surgery as outpatient after hepatitis improves. 3. Acute conjunctivitis: Left eye redness for several days, assume bacterial, will give Cipro eye drip.
[2018-07-14] MEDS: Ciprofloxacin HCL Soln 5 ML BOTTLE LEFT EYE SCH ×2 (15:41→19:51)
[2018-07-15] MEDS: Ciprofloxacin HCL Soln 5 ML BOTTLE LEFT EYE SCH ×6 (00:41→20:18)
[2018-07-15] MEDS: *HR* Heparin 5,000 UNIT/ML VIAL SQ SCH ×3 (05:15→22:04)
[2018-07-15 06:20] LABS: Basophils % 0.9 %; Eosinophils # 0.1 K/mcL (0.0-0.6); Eosinophils % 1.7 %; Hematocrit 46.5 % (37.5-50.1); Hemoglobin 16.3 g/dL (12.9-16.9); Immature Granulocytes % 0.4 % (0-4); Lymphocytes # 1.3 K/mcL (0.6-4.6); Lymphocytes % 26.9 %; Mean Corpuscular HGB Conc 35.1 g/dL (31.6-35.5); Mean Corpuscular Hemoglobin 28.6 pg (28.0-33.3); Mean Corpuscular Volume 81.7 fL (83.0-100.0); Mean Platelet Volume 11.1 fL (9.4-12.4); Monocytes # 0.5 K/mcL (0.0-1.3); Monocytes % 10.3 %; Neutrophils # 2.8 K/mcL (1.6-8.9); Platelet Count 174 K/mcL (140-400); Red Blood Count 5.69 M/mcL (4.19-5.50); Red Cell Distribution Width 13.1 % (11.5-14.5); Segmented Neutrophils % 59.8 %
[2018-07-15 06:27] LABS: INR 1.4; Prothrombin Time 16.3 Seconds (9.4-12.1)
[2018-07-15 06:52] LABS: Platelet Estimate Normal (Normal); Reactive Lymphocytes Present (Not Present)
[2018-07-15 07:26] LABS: Alanine Aminotransferase > 500 Units/L (7-52); Albumin 2.7 g/dL (3.5-5.7); Albumin/Globulin Ratio 1.2 (1.1-2.2); Alkaline Phosphatase 152 Units/L (34-104); Aspartate Amino Transferase 1968 Units/L (13-39); BUN/Creatinine Ratio 10 (6-26); Bilirubin,Indirect 2.5 mg/dL (0.0-1.2); Bilirubin,Total 7.5 mg/dL (0.3-1.0); Blood Urea Nitrogen 6 mg/dL (6-20); Calcium 7.4 mg/dL (8.6-10.3); Carbon Dioxide 26 mEq/L (23-29); Chloride 101 mEq/L (98-107); Globulin 2.3 g/dL (2.4-3.5); Glucose 199 mg/dL (70-105); Osmolality,Calculated 285 (280-300); Potassium 3.5 mEq/L (3.5-5.1); Sodium 136 mEq/L (136-145); eGFR For Non-African Americans > 60 (> 60)
--- NOTE | 2018-07-15 11:00 | Internal Med Progress Note ---
Hospitalist Progress Note - Encounter Date of Encounter: 07/15/18 Time of Encounter: 11:00 - Subjective Interval History: Patient seen and examined this morning. Denies new complais. Abdominal pain unchanged. Denies N/V. Able to tolerate food. Having BM. No fever, chills or diarrhea - Exam Vitals: Temp Pulse Resp BP Pulse Ox 98.2 F 90 18 112/73 96 07/15/18 06:39 07/15/18 06:39 07/15/18 06:39 07/15/18 06:39 07/15/18 06:39 Exam: General: In no acute distress. Conversant. Obese. HEENT: Icteric conjunctiva Respiratory exam: CTAB. no accessory muscle use, rales, rhonchi, wheezes Cardiovascular exam: RRR, +S1, +S2. no murmur, gallop, rubs. GI/Abdominal exam: RUQ tenderness, Non-distended, normal bowel sounds, soft, no peritoneal signs. Extremities exam: full ROM, no pedal edema, warm, pulses palpable in b/l lower extremities. no calf tenderness Neurological exam: CN II-XII intact, AO X3, no focal deficits. no pronater drift, facial droop, speech deficit Skin exam: No skin rash, ulcer, purpura or ecchymosis. - Assessment and Plan (1) Acute hepatitis Current Visit: Yes Status: Acute (2) Abdominal pain Current Visit: Yes Status: Acute (3) Flu-like symptoms Current Visit: Yes Status: Acute (4) Abnormal LFTs Current Visit: Yes Status: Acute (5) DVT prophylaxis Current Visit: Yes Status: Acute - Summary of Assessment and Plan Summary of Assessment and Plan: Acute hepatitis A - c/w supportive treatment - GI consult appreciated. - Increased LFT today. Will Monitor for worsening LFTs - c/w diet as tolerated Clolecystitis - evidence on CT and US. acute hepatitis A can appears similar. - No plan from surgery. No need for antibiotics - follow-up with surgery as outpatient after hepatitis improves. Acute conjunctivitis - improved - c/w Cipro eye drip. - Time Spent with Patient Total time spent is greater than 50% in coordination of care (as documented) at patient's floor/unit and/or counseling patient: Internal Medicine: Result - Labs CBC & Chem 7: 07/15/18 05:49 07/15/18 05:49 Labs: Short CBC 07/15/18 Range/Units 05:49 WBC 4.7 (4.3-11.1) K/mcL Hgb 16.3 (12.9-16.9) g/dL Hct 46.5 (37.5-50.1) % Plt Count 174 (140-400) K/mcL Neutrophils # 2.8 (1.6-8.9) K/mcL BMP 07/15/18 05:49 Sodium 136 Potassium 3.5 Chloride 101 Carbon Dioxide 26 BUN 6 Creatinine 0.63 L Glucose 199 H Calcium 7.4 L Liver Function 07/15/18 Range/Units 05:49 Total Bilirubin 7.5 H (0.3-1.0) mg/dL Direct Bilirubin 5.0 H (0.0-0.2) mg/dL AST 1968 H (13-39) Units/L ALT > 500 H (7-52) Units/L Alkaline Phosphatase 152 H (34-104) Units/L Albumin 2.7 L (3.5-5.7) g/dL - ABG Interpretation ABG results: PT/INR, D-dimer PT 16.3 Seconds (9.4-12.1) H 07/15/18 05:49 Consult Discharge Plan - Plan Referrals: Yogesh Mayfield DO [Partnered Physician] - 08/19/18 2:50 pm (Please follow up as schedule..) Cassandra Da Silva [Advanced Practice Nurse] - 07/29/18 2:30 pm (Please follow up as schedule...) NONE,PCP [Primary Care Provider] - (2) Abdominal pain Qualifiers: Abdominal location: generalized Qualified Code(s): R10.84 - Generalized abdominal pain
--- NOTE | 2018-07-15 20:00 | Electrocardiograph Report ---
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
[2018-07-15] MEDS: Ondansetron 4 MG/2 ML VIAL IVP PRN (20:18)
[2018-07-16] MEDS: Ciprofloxacin HCL Soln 5 ML BOTTLE LEFT EYE SCH ×3 (00:03→07:40)
[2018-07-16] MEDS: *HR* Heparin 5,000 UNIT/ML VIAL SQ SCH (05:05)
[2018-07-16 06:38] LABS: Basophils % 0.7 %; Eosinophils # 0.1 K/mcL (0.0-0.6); Hematocrit 47.5 % (37.5-50.1); Hemoglobin 16.6 g/dL (12.9-16.9); Immature Granulocytes % 0.4 % (0-4); Lymphocytes # 1.3 K/mcL (0.6-4.6); Lymphocytes % 23.1 %; Mean Corpuscular HGB Conc 34.9 g/dL (31.6-35.5); Mean Corpuscular Hemoglobin 28.7 pg (28.0-33.3); Mean Corpuscular Volume 82.2 fL (83.0-100.0); Mean Platelet Volume 10.9 fL (9.4-12.4); Monocytes # 0.6 K/mcL (0.0-1.3); Monocytes % 9.8 %; Neutrophils # 3.6 K/mcL (1.6-8.9); Platelet Count 196 K/mcL (140-400); Red Blood Count 5.78 M/mcL (4.19-5.50); Red Cell Distribution Width 13.3 % (11.5-14.5)
[2018-07-16 06:46] LABS: INR 1.3; Prothrombin Time 14.5 Seconds (9.4-12.1)
[2018-07-16 07:10] LABS: Platelet Estimate Normal (Normal)
[2018-07-16] MEDS: Ondansetron 4 MG/2 ML VIAL IVP PRN (07:43)
[2018-07-16 07:45] VITALS: BP 105/71
[2018-07-16 09:17] LABS: Alanine Aminotransferase > 500 Units/L (7-52); Albumin 2.7 g/dL (3.5-5.7); Albumin/Globulin Ratio 1.1 (1.1-2.2); Alkaline Phosphatase 158 Units/L (34-104); Aspartate Amino Transferase 1410 Units/L (13-39); Bilirubin,Direct 5.2 mg/dL (0.0-0.2); Bilirubin,Indirect 2.8 mg/dL (0.0-1.2); Globulin 2.4 g/dL (2.4-3.5); Total Protein 5.1 g/dL (6.4-8.9)
--- NOTE | 2018-07-16 10:50 | Discharge Summary ---
- NOTES TO OUTPATIENT PROVIDER Notes to Outpatient Provider: Follow-up with gastroenterology within 1 week. Monitor LFTs. Date of Encounter: 07/16/18 Time of Encounter: 10:47 - Discharge Diagnosis (1) Acute hepatitis Priority: Primary Status: Acute (2) Abdominal pain Priority: Primary Status: Acute Qualifiers: Abdominal location: generalized Qualified Code(s): R10.84 - Generalized abdominal pain (3) Flu-like symptoms Priority: Primary Status: Acute (4) Abnormal LFTs Priority: Primary Status: Acute (5) DVT prophylaxis Priority: Secondary Status: Acute Hospital course: Mr. Puente is a 53 year old male with no significant past medical history was admitted with flulike illness after he was found to have elevated LFTs. Patient was found to have hepatitis A. patient had CT abdomen as well as ultrasound which showed signs of acute cholecystitis and surgery was consulted. However given ongoing hepatitis A infection it could appear similar on imaging. Patient was managed conservatively and had downtrending LFTs during his hospital stay. Patient has been tolerating diet well. Patient would be discharged home. Discussed hygienic practices to prevent spread of hepatitis A as well as to avoid any [id number] or herbal medication without discussing with PCP. Patient will need GI and surgery follow-up within 1 week as well as LFT follow- up. Discharge discussed with: patient, nurse, social work, executive talent acquisition consultant - Time Spent with Patient Total time spent providing and/or coordinating discharge services: Greater than 30 minutes (38) - Discharge Medications Prescriptions: Ciprofloxacin HCL [Ciloxan OPTH Soln] 2 drop LEFT EYE Q4HR 4 Days #1 bottle Home Medications: Ciprofloxacin HCL [Ciloxan OPTH Soln] 2 drop LEFT EYE Q4HR 4 Days #1 bottle 07/16/18 [Rx] Allergies/Adverse Reactions: Allergy/AdvReac Type Severity Reaction Status Date / Time Penicillins Allergy Mild Anaphylaxis Verified 07/14/18 07:52 Date of admission: 07/13/18 23:32 Primary care physician: PCP NONE Consults: 07/14/18 06:37 Consult to Surgery [CONS] Routine Consulting Provider: [facility] Reason for Consult: Questionable acute cholecystitis Call Completed: No 07/14/18 10:35 Consult to Gastroenterology [CONS] Routine Consulting Provider: Gastroenterology [facility] Reason for Consult: Acute hep A Call Completed: No Discharging clinician: Apurva Ceja - Constitutional Vitals: Temp Pulse Resp BP Pulse Ox 97.3 F L 81 16 105/71 96 07/16/18 07:43 07/16/18 07:43 07/16/18 07:43 07/16/18 07:43 07/16/18 07:43 Exam: General: In no acute distress. Conversant. Obese. HEENT: Icteric conjunctiva Respiratory exam: CTAB. no accessory muscle use, rales, rhonchi, wheezes Cardiovascular exam: RRR, +S1, +S2. no murmur, gallop, rubs. GI/Abdominal exam: RUQ tenderness, Non-distended, normal bowel sounds, soft, no peritoneal signs. Extremities exam: full ROM, no pedal edema, warm, pulses palpable in b/l lower extremities. no calf tenderness Neurological exam: CN II-XII intact, AO X3, no focal deficits. no pronater drift, facial droop, speech deficit Skin exam: No skin rash, ulcer, purpura or ecchymosis. - Patient Status Disposition: Home, Self-Care Condition: Good - Discharge Instructions Instructions: Ciprofloxacin (Into the eye) Follow Up With: Yogesh Mayfield DO [Partnered Physician] - 08/19/18 2:50 pm (Please follow up as schedule..) Zuleyka Da Silva DO [Partnered Physician] - 07/23/18 9:00 am (Please follow u[p as scheduled. And you will be receiving a new patient packet in the mail to be completed prior to your appointment. Thank you!) Cassandra Da Sliva [Advanced Practice Nurse] - 07/29/18 2:30 pm (Please follow up as schedule...) - Diet and Activity Activity: resume usual activities as tolerated
== END 2018-07-16 11:57 | disposition home or self-care (01) ==
LOC: 2ANU 17:03 → EMEROOARM 17:03 → SUATTDRO 23:32 → 2ANU 07-14 00:32
PROVIDERS: ADMIT Internal Medicine; ATTEND Internal Medicine